=== PATIENT | female | born 1945 | race Caucasian/White ===

== ENCOUNTER 2018-12-25 11:11 | Outpatient (CLI) | payer OTHER | END 2018-12-26 10:38 | disposition home or self-care (01) | LOC: RAD 11:11 | DX: M25.562 Pain in left knee (principal) ==

== ENCOUNTER → 2018-12-26 09:59 | Outpatient (CLI) | payer OTHER ==
[~2018-12-26 09:59] MED LIST: ASA-EC81 MG PO; LABETALOL HCL100 MG PO; SYNTHROID50 MCG PO; VASOTEC20 MG PO
== END | disposition home or self-care (01) ==
LOC: LAB 09:59
DX: D64.89 Other specified anemias (principal); E88.89 Other specified metabolic disorders; M81.8 Other osteoporosis without current pathological fracture; M85.88 Other specified disorders of bone density and structure, other site; E55.9 Vitamin D deficiency, unspecified; E56.1 Deficiency of vitamin K

== ENCOUNTER 2019-01-09 10:43 | Outpatient (CLI) | payer OTHER ==
[2019-01-09] MEDS ORDERED: LABETALOL HCL100 MG PO (15:02)
[2019-01-09] MEDS ORDERED: VASOTEC20 MG PO (15:02)
[2019-01-09] MEDS ORDERED: SYNTHROID50 MCG PO (15:02)
[2019-01-09] MEDS ORDERED: ASA-EC81 MG PO (15:10)
== END 2019-01-09 10:56 | disposition home or self-care (01) ==
LOC: LAB 10:43 → RAD 10:43 → LAB 10:56
DX: D64.89 Other specified anemias (principal); E88.89 Other specified metabolic disorders; D68.8 Other specified coagulation defects; N39.0 Urinary tract infection, site not specified; Z22.322 Carrier or suspected carrier of Methicillin resistant Staphylococcus aureus; Z76.89 Persons encountering health services in other specified circumstances; I49.8 Other specified cardiac arrhythmias

== ENCOUNTER 2019-01-12 11:15 | Outpatient (CLI) | payer OTHER | END 2019-01-12 11:22 | disposition home or self-care (01) | LOC: LAB 11:15 | DX: E11.9 Type 2 diabetes mellitus without complications (principal) ==

== ENCOUNTER 2019-01-14 17:51 | Outpatient (CLI) | payer OTHER | END 2019-01-14 18:00 | disposition home or self-care (01) | LOC: LAB 17:51 | DX: N39.0 Urinary tract infection, site not specified (principal) ==

== ENCOUNTER 2019-01-16 05:42 | Day surgery (SDC) | payer OTHER | END 2019-01-16 12:18 | disposition home or self-care (01) | LOC: CIR.AMB 05:42 | DX: M23.232 Derangement of other medial meniscus due to old tear or injury, left knee (principal); M65.862 Other synovitis and tenosynovitis, left lower leg ==

== ENCOUNTER 2019-02-24 10:59 | Outpatient (CLI) | payer OTHER | END 2019-02-24 11:05 | disposition home or self-care (01) | LOC: LAB 10:59 | DX: I48.0 Paroxysmal atrial fibrillation (principal) ==

== ENCOUNTER 2021-11-08 14:14 | Outpatient (CLI) | payer OTHER | END 2021-11-08 14:21 | disposition home or self-care (01) | LOC: RAD 14:14 | PROVIDERS: ATTEND Orthopaedic Surgery | DX: M25.562 Pain in left knee (principal); M25.571 Pain in right ankle and joints of right foot; M25.572 Pain in left ankle and joints of left foot ==

== ENCOUNTER 2021-12-01 15:53 | Outpatient (CLI) | payer OTHER | END 2021-12-01 16:00 | disposition home or self-care (01) | LOC: RAD 15:53 | PROVIDERS: ATTEND Orthopaedic Surgery | DX: M25.522 Pain in left elbow (principal); M79.671 Pain in right foot; M79.672 Pain in left foot ==

== ENCOUNTER 2021-12-04 14:09 | Outpatient (CLI) | payer OTHER | END 2021-12-04 14:12 | disposition home or self-care (01) | LOC: NUCLEAR 14:09 | PROVIDERS: ATTEND Orthopaedic Surgery | DX: M81.0 Age-related osteoporosis without current pathological fracture (principal) ==

== ENCOUNTER 2021-12-07 09:40 | Outpatient (CLI) | payer OTHER | END 2021-12-07 09:47 | disposition home or self-care (01) | LOC: SONOGRAMA 09:40 | PROVIDERS: ATTEND Internal Medicine | DX: E04.2 Nontoxic multinodular goiter (principal); E22.1 Hyperprolactinemia ==

== ENCOUNTER 2022-02-02 14:55 | Outpatient (CLI) | payer OTHER | END 2022-02-02 15:37 | disposition home or self-care (01) | LOC: RAD 14:55 | PROVIDERS: ATTEND Orthopaedic Surgery | DX: M79.671 Pain in right foot (principal); M79.672 Pain in left foot ==

== ENCOUNTER 2022-04-13 14:01 | Outpatient (CLI) | payer OTHER ==
[~2022-04-13 14:01] MED LIST changes: +VOLTAREN ARTHRI20 GM TOP
== END 2022-04-13 14:12 | disposition home or self-care (01) ==
LOC: RAD 14:01
PROVIDERS: ATTEND Internal Medicine
DX: Z12.39 Encounter for other screening for malignant neoplasm of breast (principal); N60.39 Fibrosclerosis of unspecified breast; M25.551 Pain in right hip

== ENCOUNTER 2022-11-28 14:53 | Outpatient (CLI) | payer OTHER | END 2022-11-28 15:00 | disposition home or self-care (01) | LOC: RAD 14:53 | PROVIDERS: ATTEND Orthopaedic Surgery | DX: M25.562 Pain in left knee (principal); M79.641 Pain in right hand ==

== ENCOUNTER 2024-03-18 15:37 | Outpatient (CLI) | payer OTHER | END 2024-03-18 15:45 | disposition home or self-care (01) | LOC: RAD 15:37 | PROVIDERS: ATTEND Psychiatry & Neurology Psychiatry | DX: M25.572 Pain in left ankle and joints of left foot (principal) ==

== ENCOUNTER 2024-10-20 10:57 | Outpatient (CLI) | payer OTHER | END 2024-10-20 11:00 | disposition home or self-care (01) | LOC: MAMO-SONO 10:57 | DX: N60.39 Fibrosclerosis of unspecified breast (principal); Z12.39 Encounter for other screening for malignant neoplasm of breast; Z12.31 Encounter for screening mammogram for malignant neoplasm of breast ==

== ENCOUNTER 2024-10-20 12:59 | Outpatient (CLI) | payer OTHER | END 2024-10-20 13:00 | disposition home or self-care (01) | LOC: NUCLEAR 12:59 | DX: M81.0 Age-related osteoporosis without current pathological fracture (principal) ==